=== PATIENT | female | born 1965 | race Caucasian/White ===

== ENCOUNTER 2017-04-01 15:35 | Emergency (ER) | payer BC ==
--- NOTE | 2017-04-01 17:15 | ER Document Report ---
HPI - HPI Pain Level: 4 Notes: Patient is a 51-year-old female presents to the ED complaining of low back pain 2 days. Patient says she has been taking ibuprofen with minimal relief. Patient is not aware of any acute injury. 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 Patient states the pain is sharp and does not radiate. Standing helps while sitting makes it worse. Patient is allergic to codeine- hives. Patient states she is still eating and drinking with no problems. She is still urinating normally as well as having normal bowel movements. She has not noticed any focal weakness or paralysis. Denies any fever, headaches, URI, sore throat, chest pain, palpitations, syncope, shortness breath, cough, wheeze , abdominal pain, nausea/vomiting/diarrhea, urinary retention, hematuria, dysuria, saddle anesthesia, rash. - CONSTITUTIONAL Notes: REVIEW OF SYSTEMS: CONSTITUTIONAL : Denies fever, chills, or sweats. Denies recent illness. EENT: Denies eye, ear, throat, or mouth pain or symptoms. Denies nasal or sinus congestion or discharge. Denies throat, tongue, or mouth swelling or difficulty swallowing. CARDIOVASCULAR: Denies chest pain. Denies palpitations or racing or irregular heart beat. Denies ankle edema. RESPIRATORY: Denies cough, cold, or chest congestion. Denies shortness of breath, difficulty breathing, or wheezing. GASTROINTESTINAL: Denies abdominal pain or distention. Denies nausea, vomiting , or diarrhea. Denies blood in vomitus, stools, or per rectum. Denies black, tarry stools. Denies constipation. GENITOURINARY: Denies difficulty urinating, painful urination, burning, frequency, blood in urine, or discharge. FEMALE GENITOURINARY: Denies vaginal bleeding, heavy or abnormal periods, irregular periods. Denies vaginal discharge or odor. MUSCULOSKELETAL: see hpi. SKIN: Denies rash, lesions or sores. NEUROLOGICAL: Denies confusion or altered mental status. Denies passing out or loss of consciousness. Denies dizziness or lightheadedness. Denies headache. Denies weakness or paralysis or loss of use of either side. Denies problems with gait or speech. Denies sensory loss, numbness, or tingling. Denies seizures. ALL OTHER SYSTEMS REVIEWED AND NEGATIVE. Dictation was performed using [employer] voice recognition software - CARDIOVASCULAR Cardiovascular: DENIES: Chest pain - DERM Skin Color: Normal Past Medical History - Social History Smoking Status: Current Every Day Smoker Chew tobacco use (# tins/day): No Frequency of alcohol use: None Drug Abuse: None Family History: Reviewed & Not Pertinent Patient has suicidal ideation: No Patient has homicidal ideation: No Renal/ Medical History: Denies: Hx Peritoneal Dialysis Vertical Provider Document - CONSTITUTIONAL Notes: PHYSICAL EXAMINATION: GENERAL: Well-appearing, well-nourished and in no acute distress. HEAD: Atraumatic, normocephalic. EYES: Pupils equal round and reactive to light, extraocular movements intact, sclera anicteric, conjunctiva are normal. NECK: Normal range of motion, supple without lymphadenopathy. No rigidity. LUNGS: Breath sounds clear to auscultation bilaterally and equal. No wheezes rales or rhonchi. HEART: Regular rate and rhythm without murmurs, rubs, gallops. ABDOMEN: Soft, nontender, nondistended abdomen. No guarding, no rebound. No masses appreciated. Normal bowel sounds present. No CVA tenderness bilaterally. No pulsatile mass. Musculoskeletal: FROM to passive/active to LE's b/l. Strength 5+/5. SLR negative b/l. Back: No ecchymosis, abrasion, laceration, or deformity noted. + old surgical scar midline L-spine. FROM to passive/active. Strength 5+/5. No palpable tenderness. Pt states only tender when she moves/twists. Sphincter tone intact. Extremities: No cyanosis, clubbing, or edema b/l. Peripheral pulses 2+. Capillary refill less than 3 seconds. NEUROLOGICAL: Cranial nerves grossly intact. Normal speech, normal gait. Normal sensory, motor exams. Reflexes 1+ b/l LE. PSYCH: Normal mood, normal affect. SKIN: Warm, Dry, normal turgor, no rashes or lesions noted. - INFECTION CONTROL TRAVEL OUTSIDE OF THE [place] IN LAST 30 DAYS: No - RESPIRATORY O2 Sat by Pulse Oximetry: 98 Course - Re-evaluation Re-evalutation: 04/01/17 21:30 Patient is afebrile, well-hydrated, 51-year-old female presents to the ED with left lower back pain suspect back strain/sprain. Vitals are stable. Patient is neurovascularly intact. Unable to reproduce the pain described by the patient by palpation. Pain is exacerbated with twisting motions. Toradol 15 mg given IM today. Lidoderm patch placed. I will send her home with a prescription for Voltaren gel. Conservative measures otherwise for symptoms. Recommend follow-up with her PCM further management and evaluation 2-3 days. Return to the ED with worsening/concerning symptoms otherwise. Patient is in agreement. Low suspicion for expanding/ruptured AAA, cauda equina, epidural mass lesion, herniated disk causing severe spinal stenosis, or systemic infection at this time. - Vital Signs Vital signs: Temp Pulse Resp BP Pulse Ox 97.3 F 80 18 166/99 H 98 04/01/17 15:42 04/01/17 15:42 04/01/17 15:42 04/01/17 15:42 04/01/17 15:42 Discharge - Discharge Clinical Impression: Low back pain Qualifiers: Chronicity: acute Back pain laterality: unspecified Sciatica presence: without sciatica Qualified Code(s): M54.5 - Low back pain Condition: Stable Disposition: HOME, SELF-CARE Instructions: Ice Packs ([facility]), Low Back Pain ([facility]), Muscle Strain ([facility]), Warm Packs ([facility]) Additional Instructions: Rest, Ice Tylenol/ibuprofen as needed Light stretches daily use meds as directed Strength exercises as able Moist heat and massage may help F/u with your PCP in 2-3 days for a recheck Consider consult(s) with Orthopedics for ongoing/worsening symptoms Return to the ED with any worsening symptoms and/or development of fever, headache, chest pain, palpitations, syncope, shortness of breath, trouble breathing, abdominal pain, n/v/d, blood in stool/urine, urinary retention, muscle weakness/paralysis, or other worsening symptoms that are concerning to you. Prescriptions: Diclofenac Sodium [Voltaren] 4 gm TP QID PRN #100 gel..gm. PRN Reason: Forms: Elevated Blood Pressure Referrals: SHILPA SNYDER FNP-C [Primary Care Provider] - Follow up as needed
[2017-04-01] MEDS ORDERED: KETOROLAC TROMETHAMINE INJ/PF 30 MG/1 ML SDV IM ONE (17:16)
--- NOTE | 2017-04-01 18:22 | RADIOLOGY REPORT (SQ) ---
EXAM DESCRIPTION: L SPINE WHOLE COMPLETED DATE/TIME: 04/01/2017 5:58 pm REASON FOR STUDY: Low back pain COMPARISON: None. NUMBER OF VIEWS: Five views including obliques. TECHNIQUE: AP, lateral, oblique, and sacral radiographic images acquired of the lumbar spine. LIMITATIONS: None. FINDINGS: MINERALIZATION: Normal. SEGMENTATION: Normal. No transitional anatomy. ALIGNMENT: GRADE 1 LISTHESIS AT L3-4 AND L4-5. VERTEBRAE: Maintained height. No fracture or worrisome bone lesion. DISCS: MILD DISC SPACE NARROWING WITHOUT BULKY OSTEOPHYTES. POSTERIOR ELEMENTS: Pedicles and facets are intact. No pars defect or posterior arch defects. HARDWARE: DORSAL DECOMPRESSION WITH INSTRUMENTATION AT L4-5. INTACT. PARASPINAL SOFT TISSUES: Normal. PELVIS: Intact as visualized. No fractures or worrisome bone lesions. SI joints intact. OTHER: No other significant finding. IMPRESSION: POSTOPERATIVE AND DEGENERATIVE LUMBAR SPINE CHANGES. TECHNICAL DOCUMENTATION: JOB ID: [id number] [employer]- All Rights Reserved
[2017-04-01] MEDS ORDERED: LIDOCAINE 5% (700 MG) TRANSDERMAL ADH..PATCH TP ONE (18:32)
[2017-04-01 18:53] VITALS: BP 155/83
== END 2017-04-01 18:41 | disposition home or self-care (01) ==
LOC: ER 15:35
DX: M54.5 Low back pain (principal); Z98.1 Arthrodesis status; Z88.5 Allergy status to narcotic agent; F17.200 Nicotine dependence, unspecified, uncomplicated
CPT/HCPCS: 99283; 96372; 72110; J1885